=== PATIENT | female | born 1945 | race Caucasian/White ===

== ENCOUNTER → 2017-08-09 | Outpatient (CLI) | payer OTHER ==
--- NOTE | 2017-08-09 16:05 | DIAGNOSTIC IMAGING REPORT ---
L PELVIS UNI HIP 2-3 V HISTORY: 72 years-old Female LEFT HIP PAIN acute left hip pain COMPARISON: None available TECHNIQUE: AP view of the pelvis with AP and lateral views of the left hip FINDINGS: No pelvic ring fracture is identified. 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 Degenerative spurring is noted about the bilateral greater trochanters. Advanced degenerative changes of the lower lumbar spine. No acute fracture or subluxation. Probable phleboliths of the pelvis. IMPRESSION: 1. No acute fracture or subluxation. 2. 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 The above report was generated using voice recognition software. It may contain grammatical, syntax or spelling errors. Electronically signed by: Joe Campbell M.D. 08/09/2017 4:03 PM Dictated Date/Time: 08/09/2017 4:01 PM
== END | disposition home or self-care (01) ==
LOC: C.RDSM 15:26
PROVIDERS: ATTEND Family Medicine
DX: M25.552 Pain in left hip (principal); Z88.0 Allergy status to penicillin